=== PATIENT | male | born 2000 | race Caucasian/White ===

== ENCOUNTER 2018-01-12 23:16 | Emergency (ER) | payer SELFPAY ==
[~2018-01-12] VITALS: Ht 167.6 cm; Wt 54.4 kg
[2018-01-12 23:20] VITALS: BP 132/86
== END 2018-01-13 03:57 | disposition left against medical advice (07) ==
LOC: ER 23:16
DX: M25.572 Pain in left ankle and joints of left foot (principal); R07.81 Pleurodynia; Z53.21 Procedure and treatment not carried out due to patient leaving prior to being seen by health care provider
CPT/HCPCS: 71111; 73610